=== PATIENT | male | born 1975 | race Caucasian/White ===

== ENCOUNTER 2021-12-18 01:52 | Emergency (ER) | payer MEDICAID ==
[~2021-12-18] VITALS: Ht 175.3 cm; Wt 100.0 kg
[2021-12-18 01:53] VITALS: BP 124/84
== END 2021-12-18 03:17 | disposition left against medical advice (07) ==
LOC: M ED 01:52
DX: Z53.21 Procedure and treatment not carried out due to patient leaving prior to being seen by health care provider (principal)

== ENCOUNTER 2022-01-28 15:59 | Emergency (ER) | payer MEDICAID, OTHER ==
[~2022-01-28] VITALS: Ht 175.3 cm; Wt 101.8 kg
[2022-01-28 17:02] LABS: BASO # 0.1 10^3/uL (0.0-0.2); BASO % 1.1 % (0.0-1.0); EOS # 0.1 10^3/uL (0.0-0.5); EOS % 0.6 % (0.0-3.0); HEMATOCRIT 50.5 % (42.0-52.0); HEMOGLOBIN 18.1 g/dl (13.5-17.5); LYMPH # 0.9 10^3/uL (1.5-5.0); MEAN CORPUSCULAR HEMOGLOBIN 32.8 pg (27.0-33.0); MEAN CORPUSCULAR HGB CONC 35.8 g/dl (32.0-36.5); MEAN CORPUSCULAR VOLUME 91.5 fl (80.0-96.0); MONO # 1.2 10^3/uL (0.0-0.8); MONO % 12.2 % (2.0-8.0); NEUTROPHILS # 7.1 10^3/uL (1.5-8.5); NEUTROPHILS % 75.5 % (36.0-66.0); PLATELET COUNT, AUTOMATED 173 10^3/uL (150-450); RED BLOOD COUNT 5.52 10^6/uL (4.30-6.10); WHITE BLOOD COUNT 9.4 10^3/uL (4.0-10.0)
[2022-01-28 17:34] LABS: BLOOD UREA NITROGEN 11 MG/DL (7-18); CARBON DIOXIDE LEVEL 26 MEQ/L (21-32); CHLORIDE LEVEL 102 MEQ/L (98-107); CREATININE FOR GFR 1.31 MG/DL (0.70-1.30); GLOMERULAR FILTRATION RATE > 60.0 (>60); GLUCOSE, FASTING 99 MG/DL (70-100); POTASSIUM SERUM 4.1 MEQ/L (3.5-5.1); SODIUM LEVEL 133 MEQ/L (136-145)
[2022-01-28 17:35] LABS: ALBUMIN 4.4 GM/DL (3.2-5.2); ALT/SGPT 138 U/L (12-78); BILIRUBIN,DIRECT 0.2 MG/DL (0.0-0.2); BILIRUBIN,TOTAL 0.9 MG/DL (0.2-1.0); CALCIUM LEVEL 8.7 MG/DL (8.5-10.1); LIPASE 124 U/L (73-393); TOTAL PROTEIN 8.3 GM/DL (6.4-8.2)
[2022-01-28] MEDS ORDERED: NS 1,000 ML IV ONE (19:00)
[2022-01-28] MEDS ORDERED: ONDANSETRON 4MG/2ML VIAL IV ONE (19:00)
[2022-01-28 20:26] VITALS: BP 121/70
[2022-01-28] MEDS ORDERED: VANC125C10 PO (21:56)
[2022-01-28] MEDS ORDERED: VANCOMYCIN ORAL SOL 250MG/5ML ORAL SYRINGE PO STA (22:04)
== END 2022-01-28 22:31 | disposition home or self-care (01) ==
LOC: M ED 15:59 → UNDOADMIN 21:07 → M ED INP 21:07 → M ED 22:31
DX: A04.71 Enterocolitis due to Clostridium difficile, recurrent (principal); A08.0 Rotaviral enteritis; K21.9 Gastro-esophageal reflux disease without esophagitis; F17.200 Nicotine dependence, unspecified, uncomplicated; K46.9 Unspecified abdominal hernia without obstruction or gangrene
CPT/HCPCS: 76705; 80048; 80076; 81001; 83690; 85025; 87505; 96361; 96374; 99284; J2405

== ENCOUNTER → 2022-04-23 | Outpatient (REF) ==
[~2022-04-23] MED LIST: VANC125C10 PO
== END ==
LOC: M PLAIMG 14:38
PROVIDERS: ATTEND Internal Medicine
DX: Q76.0 Spina bifida occulta (principal)

== ENCOUNTER → 2024-01-26 | Outpatient (REF) | payer OTHER ==
[~2024-01-26] MED LIST changes: -VANC125C10 PO; +VANC125C12 PO
== END ==
LOC: M SFHCDERM 09:53
PROVIDERS: ATTEND Nurse Practitioner Family
DX: L40.9 Psoriasis, unspecified (principal); Z53.9 Procedure and treatment not carried out, unspecified reason

== ENCOUNTER → 2024-06-15 | Outpatient (REF) | payer OTHER | LOC: M LAB REF 17:16 | PROVIDERS: ATTEND Plastic Surgery Surgery of the Hand | DX: Q82.5 Congenital non-neoplastic nevus (principal) ==

== ENCOUNTER → 2025-01-13 | Outpatient (CLI) | payer OTHER | LOC: M PLAIMG 10:46 | PROVIDERS: ATTEND Physician Assistant Surgical | DX: M48.061 Spinal stenosis, lumbar region without neurogenic claudication (principal) ==